=== PATIENT | male | born 1975 | race African-American/Black ===

== ENCOUNTER 2023-06-25 10:12 | Inpatient (IN) | payer OTHER ==
[2023-06-25 10:33] VITALS: BMI 22.5
[2023-06-25] MEDS ORDERED: BENZONATATE 200 MG CAPSULE PO PRN (11:05)
[2023-06-25] MEDS ORDERED: MAG HYDROX/AL HYDROX/SIMETH 30 ML UNIT-DOSE CUP PO PRN (11:05)
[2023-06-25] MEDS ORDERED: MAGNESIUM HYDROX 2400MG/30ML ORAL SUSPENSION 30 ML CUP PO PRN (11:05)
[2023-06-25] MEDS ORDERED: METHOCARBAMOL 500 MG TABLET PO PRN (11:05)
[2023-06-25] MEDS ORDERED: NALOXONE HCL (KLOXXADO) 8 MG SPRAY NS PRN (11:05)
[2023-06-25] MEDS ORDERED: ONDANSETRON *ODT* 4 MG TABLET SL PRN (11:05)
[2023-06-25] MEDS ORDERED: BENZOCAINE/MENTHOL (CHLORASEPTIC ) LOZENGE MM PRN (11:05)
[2023-06-25] MEDS ORDERED: NICOTINE POLACRILEX 2 MG GUM BUC PRN (11:05)
[2023-06-25] MEDS ORDERED: DICYCLOMINE HCL 10 MG CAPSULE PO PRN (11:05)
[2023-06-25] MEDS ORDERED: BISMUTH SUBSALICYLATE 262 MG/15 ML BTL PO PRN (11:05)
[2023-06-25] MEDS ORDERED: LOPERAMIDE HCL 2 MG CAPSULE PO PRN (11:05)
[2023-06-25] MEDS ORDERED: guaiFENesin 600 MG TABLET.ER (FP) PO PRN (11:05)
[2023-06-25] MEDS ORDERED: POLYETHYLENE GLYCOL (HEALTHYLAX) 3350 17 GM PACKET PO PRN (11:05)
[2023-06-25] MEDS ORDERED: IBUPROFEN 400 MG TABLET (FP) PO PRN (11:05)
[2023-06-25] MEDS ORDERED: NALOXONE HCL 0.4 MG/ML VIAL IM PRN (11:05)
[2023-06-25] MEDS ORDERED: ACETAMINOPHEN 325 MG TABLET (FP) PO PRN (11:05)
[2023-06-25] MEDS ORDERED: IBUPROFEN 600 MG TABLET (FP) PO PRN (11:05)
[2023-06-25] MEDS ORDERED: ALBUTEROL SO4 HFA INHALER IH PRN (18:57)
[2023-06-25] MEDS: APIXABAN 5 MG TABLET PO SCH (21:48)
[2023-06-25] MEDS: THIAMINE HCL 100 MG TABLET (FP) PO SCH (21:49)
[2023-06-25] MEDS: MELATONIN 5 MG TABLETS PO SCH (21:49)
[2023-06-26] MEDS ORDERED: diazePAM 5 MG TABLET PO PRN (09:12)
[2023-06-26] MEDS: PRENATAL VITAMINS W/ FOLIC ACID TABLET (FP) PO SCH (10:03)
[2023-06-26] MEDS: NICOTINE 21 MG/24 HOURS TOPICAL PATCH TD SCH (10:04)
[2023-06-26] MEDS: diazePAM 5 MG TABLET PO SCH ×2 (10:04→18:09)
[2023-06-26 12:17] LABS: POTASSIUM 4.6 mmol/L (3.5-5.1)
[2023-06-26 12:26] LABS: ALBUMIN 3.7 g/dl (3.4-5.0); CALCIUM 9.5 mg/dL (8.5-10.1)
[2023-06-26 12:31] LABS: BILIRUBIN,TOTAL 1.2 mg/dL (0.2-1); TOT PROT 7.8 g/dl (6.4-8.2)
[2023-06-26 12:35] LABS: HEMATOCRIT 38.3 % (35.4-49); HEMOGLOBIN 13.3 GM/dL (11.7-16.9); MCH 27.3 pg (25.7-33.7); MCHC 34.8 g/dl (32.0-35.9); MEAN CELL VOLUME 78.3 fl (80-96); MEAN PLT VOLUME 8.6 fl (7.5-11.1); PLATELET COUNT 321 10^3/uL (134-434); RBC 4.89 M/mm3 (4.00-5.60); RDW 16.1 % (11.9-15.9)
[2023-06-26 12:44] LABS: WHITE BLOOD COUNT 6.1 K/mm3 (4.0-10.0)
[2023-06-26] MEDS: hydrOXYzine PAMOATE 25 MG CAPSULE (FP) PO PRN (22:28)
[2023-06-28] MEDS: diazePAM 5 MG TABLET PO SCH (05:39)
[2023-06-28 10:09] VITALS: BP 107/67; PULSE 68; RESP 18; TEMP 98.9
[2023-06-29] MEDS ORDERED: diazePAM 5 MG TABLET PO SCH (06:00)
[2023-06-30] MEDS ORDERED: diazePAM 5 MG TABLET PO ONE (06:00)
== END 2023-06-28 13:00 | disposition home or self-care (01) | DRG 775 ==
LOC: YASAS 10:12 → Y6N 11:58
PROVIDERS: ADMIT Allergy & Immunology; ATTEND Surgery
PROC: HZ2ZZZZ Detoxification Services for Substance Abuse Treatment (ICD-10-PCS; principal; 2023-06-25)
DX: F10.230 Alcohol dependence with withdrawal, uncomplicated (principal); F15.10 Other stimulant abuse, uncomplicated; F17.210 Nicotine dependence, cigarettes, uncomplicated; J45.909 Unspecified asthma, uncomplicated; Z86.711 Personal history of pulmonary embolism; Z79.01 Long term (current) use of anticoagulants
CPT/HCPCS: 36415; 80053; 80305; 80307; 85027; 86780; 87635; 87811; 93005; 93010